=== PATIENT | male | born 1985 | race Caucasian/White ===

== ENCOUNTER 2018-03-08 04:22 | Emergency (ER) | payer OTHER, SELFPAY ==
[2018-03-08 04:24] VITALS: BP 146/99; PULSE 73; RESP 16; TEMP 36.4; O2SAT 100; BMI 24.4
--- NOTE | 2018-03-08 04:34 | ED.VISSUMM ---
- ER Visit Summary Date of Service: 03/08/18 Chief Complaint: Mental health evaluation History of Present Illness: The patient is a 32 M brought in by PD for mental health evaluation. Patient history of PTSD from being a war . He is followed by [facility], last seen 2 weeks ago. He does not take his medications. Reported that recently found out friend in [place] has and significant other recently diagnosed with breast cancer. He admits to drinking 4 beers today. He does not drink daily. Tobacco history. Denies any illicit drug use. Reported he was texting with his significant other. Admits to having a flashback to the war. Significant other from [place] called PD for evaluation. He is brought here. He denies any suicidal or homicidal ideations. Denies any auditory or visual hallucinations. Physical Examination: General: Alert and oriented ?3, no acute distress, cooperative HEENT: Normocephalic, atraumatic. Moist mucosa membranes Neck: supple, nontender. Cardiovascular: Regular rate and rhythm, no murmurs Respiratory: Normal breath sounds, symmetric, no distress Abdomen: Soft, nontender, nondistended Extremities: Nontender, no edema, pulses intact ?4 Neuro: no focal neurological deficits. Psych: Denies suicidal or homicidal ideations. Test Results: Alcohol 351. Tox negative. Emergency Department Course and Treatment: Patient mild intoxication, however cooperative. He is clinically walked in the ED. This with alcohol, was going to monitor patient reevaluate. Father did come to the emergency department, did confirm significant other is not there. Patient continues denies any suicidal ideations. Father states this is happened in the past. He does feel comfortable taking the patient home. I do not feel he is a threat to himself currently. Patient will be discharged with father. Discussed with father any situation changes to return to the ED. He understands and agrees with plan. Treatment Plan: [] Disposition: Discharge Impression: Alcohol intoxication This note was generated with [employer] dictation software. It may contain incorrect words, spelling, and punctuation that were not noted in review of the chart prior to signing ED Disposition - Plan for ED Patient: Disposition: Home or Assisted Living Chief Complaint: Suicidal Diagnosis: Alcohol intoxication Referrals: [facility] Doctor,Out of [NON-STAFF] - Additional Instructions: Follow-up with the [facility], return if any worsening symptoms.
[2018-03-08 04:41] LABS: Absolute Lymphocyte Count 2.42 X10^3/ul (0.83-4.51); Absolute Neutrophil Count 3.9 X10^3/uL (2.0-7.7); Basophil# 0.05 X10^3/uL; Basophil% 0.7 % (0-1); Eosinophil# 0.12 X10^3/uL; Eosinophils% 1.7 % (0-5); Hemoglobin 17.1 g/dl (13.0-16.5); Lymphocyte # 2.42 X10^3/ul (4.0); Lymphocyte % 33.9 % (19-41); Mean Corp Hgb Conc 35.6 g/gl (32-36); Mean Corpuscular Hgb 33.3 pg (27.0-32.0); Mean Corpuscular Volume 93.6 fL (80-94); Mean Platelet Vol. 9.6 fl (6.2-12.0); Monocyte# 0.66 X10^3/uL; Monocyte% 9.3 % (0-10); Neutrophil # 3.86 X10^3/uL (2.7-7.7); Neutrophil % 54.1 % (47-70); Platelet Count 276 K/mm3 (150-450); RBC Distribution Width CV 12.1 % (11.6-14.6); RBC Distribution Width SD 41.1 fl (35.1-43.9); Red Blood Count 5.13 M/mm3 (4.6-6.2); White Blood Count 7.1 K/mm3 (4.4-11.0)
[2018-03-08 04:42] LABS: POSITIVE COUNT NO; POSITIVE DIFFERENTIAL NO; POSITIVE MORPHOLOGY NO
[2018-03-08 04:50] LABS: Anion Gap 11 (5-15); BUN 7 mg/dL (7-18); BUN/Creat Ratio 8.3 RATIO (10-20); Calcium,Total 8.9 mg/dL (8.5-10.1); Chloride 103 mmol/L (98-107); Creatinine, Serum 0.84 mg/dL (0.70-1.30); EST Glomerular Filtration Rate 112 mL/min (>60); Est Glom Filt Rate - Afr Amer 135 mL/min (>60); Estimated Creatinine Clearance 141.36 ml/min; Glucose 100 mg/dL (74-106); Potassium 3.7 mmol/L (3.5-5.1); Sodium Level 137 mmol/L (136-145)
--- OUTSIDE RECORDS SUMMARY | 2018-03-08 04:50 | XMS RPT_ITS ---
:1985 Author Organization [facility] Care Team Providers Name Role Phone George Shin Attending [facility] [place] Primary Care Unavailable PROBLEMS PROBLEMS No Problem Records FoundPROCEDURES PROCEDURES No Procedure Records FoundRESULTS RESULTS No Result Records FoundALLERGIES ALLERGIES DATE TYPE / CODE NAME / CODE REACTION SEVERITY SOURCE 03/08/2018 Drug No Known Unknown [facility] Allergy/4160 Allergies/F00 [facility] 78163(SNOMED [id number](RXNOR Repository CT) M) ENCOUNTERS ENCOUNTERS ADMIT/DISCHARGE ACCOUNT ADMITTING ENCOUNTER LOCATION SOURCE NUMBER CLASS 03/08/2018 [id number] Emergency [facility] ing:ED Repository PAYERS PAYERS ENCOUNTER GUARANTOR PAYER SUBSCRIBER SOURCE 03/08/2018 COLT [id number] [place] COLT JOSEPHOB: [facility] [id number] Number: [facility] [id number]: [phone] [id number] Repository [phone] () Date:[id number] SERVICE [id number] [place], [place] [address]ZW: [phone] [phone] 03/08/2018 [facility] Number: Effective Repository Date:2018-03-08
--- NOTE | 2018-03-08 05:19 | ED.RN ---
lab called with critical results. ETOH level 351. Dr. Shin made aware. no new orders at this time
[2018-03-08 05:20] LABS: Amphetamine Urine VISTA NEGATIVE (<1000 ng/mL); Barbiturate Urine VISTA NEGATIVE (< 200 ng/mL); Benzodiazepine Urine VISTA NEGATIVE (< 200 ng/mL); Cocaine Urine VISTA NEGATIVE (< 300 ng/mL); Ecstacy Urine VISTA NEGATIVE (< 500 ng/mL); Methadone Urine VISTA NEGATIVE (< 300 ng/mL); PCP Urine VISTA NEGATIVE (< 25 ng/mL); THC Urine VISTA NEGATIVE (< 50 ng/mL); Vista UDS pH Range 5
[2018-03-08 05:28] VITALS: RESP 14
[2018-03-08 06:03] VITALS: BP 128/61; PULSE 58; RESP 16; O2SAT 99
== END 2018-03-08 06:04 | disposition home or self-care (01) ==
PROVIDERS: Emergency Provider Emergency Medicine
DX: F10.129 Alcohol abuse with intoxication, unspecified (principal); F43.10 Post-traumatic stress disorder, unspecified; Z91.14 Patient's other noncompliance with medication regimen; Z72.0 Tobacco use; Y90.8 Blood alcohol level of 240 mg/100 ml or more
CPT/HCPCS: 80048; 80307; 80320; 85025; 99284; G0480

== ENCOUNTER 2021-09-08 18:09 | Emergency (ER) | payer OTHER, SELFPAY ==
[2021-09-08 18:09] VITALS: BP 158/93; PULSE 66; RESP 16; TEMP 36.3; O2SAT 99; BMI 19.9
--- NOTE | 2021-09-08 20:02 | ED.RN ---
WHEN THIS NURSE TALKING TO PT. PT STATES MY SURGEON IS IN [place]. MY FAMILY IS ON THEIR WAY TO GET ME. I JUST GOT OUT OF NURSING HOME. I'M GOING TO JUST GO HOME AND REST
== END 2021-09-08 20:04 | disposition left against medical advice (07) ==
LOC: ED 20:03
DX: R10.9 Unspecified abdominal pain (principal)